=== PATIENT | male | born 2000 | race African-American/Black ===

== ENCOUNTER 2024-02-04 14:59 | Emergency (ER) | payer SELFPAY ==
[~2024-02-04] VITALS: Ht 172.7 cm; Wt 97.5 kg
[2024-02-04 15:07] VITALS: PULSE 99; RESP 18; TEMP 98
[2024-02-04] MEDS ORDERED: BACTRIM DS TAB1 EACH PO (16:11)
[2024-02-04] MEDS: CEFTRIAXONE 1 GM VIAL IM ONE (16:26)
[2024-02-04 16:44] VITALS: BP 152/88; PULSE 97; RESP 18; TEMP 98.6; O2SAT 99
== END 2024-02-04 16:45 | disposition home or self-care (01) ==
LOC: FSED 15:03
DX: R31.9 Hematuria, unspecified (principal); N39.0 Urinary tract infection, site not specified
CPT/HCPCS: 87086; 87186; 99283; J0696